=== PATIENT | female | born 1965 | race Caucasian/White ===

== ENCOUNTER 2017-09-19 19:52 | Inpatient (IN) | payer SELFPAY ==
[2017-09-19] MEDS ORDERED: PANTOPRAZOLE SODIUM IV DRIP 80 MG in IV NORMAL SALINE 100ML 100 ML IV (21:00)
[2017-09-19] MEDS ORDERED: 0.9 % SODIUM CHLORIDE 10 ML DISP.SYRIN. IV (21:00)
[2017-09-19] MEDS ORDERED: NICOTINE 14MG PATCH. TD (21:00)
[2017-09-19] MEDS: PANTOPRAZOLE SODIUM IV DRIP 80 MG in IV NORMAL SALINE 100ML 100 ML IV (21:49)
[2017-09-19] MEDS: MULTIVIT INFUSN,ADULT 4,VIT K 10 ML, THIAMINE 100 MG, FOLIC ACID 1 MG in IV RINGERS,LAC... IV (21:50)
[2017-09-19 22:59] LABS: HEMATOCRIT 28.5 % (36.0-47.0); HEMOGLOBIN 9.4 g/dL (12.0-15.5); MEAN CORPUSCULAR HEMOGLOBIN 30 pg (25-35); MEAN CORPUSCULAR HGB CONC 33 g/dL (31-37); MEAN CORPUSCULAR VOLUME 90 fL (79-100); PLATELET COUNT 43 x10^3/uL (140-400); RED BLOOD COUNT 3.15 x10^6/uL (3.50-5.40); RED CELL DISTRIBUTION WIDTH 16.2 % (11.5-14.5); WHITE BLOOD COUNT 5.5 x10^3/uL (4.0-11.0)
[2017-09-20] MEDS: ACETAMINOPHEN 325 MG TABLET. PO (03:28)
[2017-09-20 04:48] LABS: ADD MAN DIFF? NO
[2017-09-20 05:22] LABS: BASO # 0.1 x10^3/uL (0.0-0.2); BASO % 1 % (0-3); EOS # 0.3 x10^3/uL (0.0-0.7); EOS % 6 % (0-3); HEMOGLOBIN 9.6 g/dL (12.0-15.5); LYMPH # 2.8 x10^3/uL (1.0-4.8); LYMPH % 58 % (24-48); MEAN CORPUSCULAR HEMOGLOBIN 30 pg (25-35); MEAN CORPUSCULAR HGB CONC 33 g/dL (31-37); MEAN CORPUSCULAR VOLUME 91 fL (79-100); MONO # 0.2 x10^3/uL (0.0-1.1); MONO % 4 % (0-9); NEUT # 1.5 x10^3uL (1.8-7.7); NEUT % 31 % (31-73); PLATELET COUNT 42 x10^3/uL (140-400); RED BLOOD COUNT 3.18 x10^6/uL (3.50-5.40); RED CELL DISTRIBUTION WIDTH 16.6 % (11.5-14.5); WHITE BLOOD COUNT 4.9 x10^3/uL (4.0-11.0)
[2017-09-20 05:32] LABS: ALBUMIN 2.7 g/dL (3.4-5.0); ALBUMIN/GLOBULIN RATIO 0.6 (1.0-1.7); ALK PHOS 142 U/L (46-116); ALT (SGPT) 27 U/L (14-59); ANION GAP 13 (6-14); AST (SGOT) 39 U/L (15-37); BLOOD UREA NITROGEN 13 mg/dL (7-20); BUN/CREATININE RATIO 10 (6-20); CALCIUM 8.9 mg/dL (8.5-10.1); CARBON DIOXIDE 20 mmol/L (21-32); CHLORIDE 106 mmol/L (98-107); CREATININE 1.3 mg/dL (0.6-1.0); GFR 42.8; GLUCOSE 104 mg/dL (70-99); POTASSIUM 3.7 mmol/L (3.5-5.1); SODIUM 139 mmol/L (136-145); TOTAL BILIRUBIN 0.5 mg/dL (0.2-1.0); TOTAL PROTEIN 6.9 g/dL (6.4-8.2)
[2017-09-20 05:45] LABS: INR 1.1 (0.8-1.1); PROTHROMBIN TIME PATIENT 14.1 SEC (11.7-14.0)
[2017-09-20] MEDS: FOLIC ACID 1 MG TABLET. PO (09:09)
[2017-09-20] MEDS: CITALOPRAM 10 MG TABLET. PO (09:09)
[2017-09-20] MEDS: MULTIVITAMIN with MINERAL TABLET. PO (09:09)
[2017-09-20] MEDS: THIAMINE IM 200 MG/2 ML VIAL. IM (09:09)
[2017-09-20 09:37] LABS: PLT ESTIMATE DECREASED (ADEQUATE)
[2017-09-20] MEDS: PANTOPRAZOLE SODIUM IV DRIP 80 MG in IV NORMAL SALINE 100ML 100 ML IV ×2 (11:04→21:44)
[2017-09-20] MEDS ORDERED: chlordiazePOXIDE HCL 25 MG CAPSULE PO (11:45)
[2017-09-20] MEDS ORDERED: diphenhydrAMINE HCL 25 MG CAPSULE PO (11:45)
[2017-09-20] MEDS ORDERED: ALPRAZolam 0.25 MG TABLET PO (11:45)
[2017-09-20] MEDS ORDERED: CITALOPRAM 20 MG TABLET. PO (12:00)
[2017-09-20] MEDS: FLUTICASONE 50MCG/NASAL SPRAY 16GM BOTTLE. NS (12:00)
[2017-09-20] MEDS: PANTOPRAZOLE 40 MG TABLET.DR. PO (12:00)
[2017-09-20] MEDS ORDERED: NON FORMULARY ITEM (Albuterol Sulfate (Proventil Hfa Inhaler) 1 PUFF) IH (12:00)
[2017-09-20] MEDS: amLODIPine BESYLATE 5 MG TABLET PO (12:00)
[2017-09-20] MEDS ORDERED: ALBUTEROL SULFATE 2.5 MG/3 ML NEBU. NEB (12:15)
[2017-09-20] MEDS: ALBUTEROL SULFATE 2.5 MG/3 ML NEBU. NEB ×3 (12:30→23:55)
[2017-09-20] MEDS: BUDESONIDE 0.5 MG/2 ML NEBU. NEB ×2 (12:30→19:48)
[2017-09-20] MEDS: FLUCONAZOLE 100 MG TABLET. PO (12:45)
[2017-09-20] MEDS: LOSARTAN POTASSIUM 50 MG TABLET. PO (12:45)
[2017-09-20] MEDS: ASPIRIN CHEWABLE 81 MG TABLET. PO (12:45)
[2017-09-20] MEDS: CHLORHEXIDINE 0.12% 15 ML MOUTHWASH. SWSP ×2 (12:47→21:34)
[2017-09-20] MEDS: oxyCODONE IR 5 MG TABLET PO (12:47)
[2017-09-20] MEDS: CLINDAMYCIN HCL 150 MG CAPSULE. PO ×2 (13:30→19:28)
[2017-09-20] MEDS: LINEZOLID 600 MG TABLET PO ×2 (14:42→21:33)
[2017-09-20] MEDS: TRIAMCINOLONE ACETONIDE 0.1% TOPICAL OINTMENT 15GM TUBE. TP ×2 (14:42→21:34)
[2017-09-20] MEDS ORDERED: oxyCODONE IR 5 MG TABLET PO (16:00)
[2017-09-20] MEDS ORDERED: NON FORMULARY ITEM (Fluticasone/Salmeterol (Advair 250-50 Diskus) 1 PUFF) IH (21:00)
[2017-09-20] MEDS: LACTOBACILLUS RHAMNOSUS GG 1 CAPSULE. PO (21:33)
[2017-09-20] MEDS: CARVEDILOL 6.25 MG TABLET. PO (21:34)
[2017-09-20 22:09] LABS: MRSA BY PCR Negative (Negative)
[2017-09-21] MEDS: CLINDAMYCIN HCL 150 MG CAPSULE. PO ×3 (00:45→11:56)
[2017-09-21 05:15] LABS: ADD MAN DIFF? NO
[2017-09-21 05:30] LABS: BASO # 0.1 x10^3/uL (0.0-0.2); BASO % 2 % (0-3); EOS # 0.5 x10^3/uL (0.0-0.7); EOS % 9 % (0-3); HEMATOCRIT 29.2 % (36.0-47.0); HEMOGLOBIN 9.6 g/dL (12.0-15.5); LYMPH % 58 % (24-48); MEAN CORPUSCULAR HEMOGLOBIN 30 pg (25-35); MEAN CORPUSCULAR HGB CONC 33 g/dL (31-37); MEAN CORPUSCULAR VOLUME 91 fL (79-100); MONO # 0.3 x10^3/uL (0.0-1.1); MONO % 6 % (0-9); NEUT # 1.3 x10^3uL (1.8-7.7); NEUT % 26 % (31-73); PLATELET COUNT 43 x10^3/uL (140-400); RED CELL DISTRIBUTION WIDTH 16.6 % (11.5-14.5); WHITE BLOOD COUNT 5.1 x10^3/uL (4.0-11.0)
[2017-09-21] MEDS: ALBUTEROL SULFATE 2.5 MG/3 ML NEBU. NEB ×2 (06:00→10:45)
[2017-09-21] MEDS: BUDESONIDE 0.5 MG/2 ML NEBU. NEB (07:00)
[2017-09-21] MEDS: CARVEDILOL 6.25 MG TABLET. PO (08:00)
[2017-09-21] MEDS: PANTOPRAZOLE SODIUM IV DRIP 80 MG in IV NORMAL SALINE 100ML 100 ML IV (08:19)
[2017-09-21] MEDS: CITALOPRAM 20 MG TABLET. PO (08:23)
[2017-09-21] MEDS: LOSARTAN POTASSIUM 50 MG TABLET. PO (08:23)
[2017-09-21] MEDS: LACTOBACILLUS RHAMNOSUS GG 1 CAPSULE. PO (08:24)
[2017-09-21] MEDS: FLUCONAZOLE 100 MG TABLET. PO (08:24)
[2017-09-21] MEDS: FOLIC ACID 1 MG TABLET. PO (08:25)
[2017-09-21] MEDS: MULTIVITAMIN with MINERAL TABLET. PO (08:26)
[2017-09-21] MEDS: amLODIPine BESYLATE 5 MG TABLET PO (08:26)
[2017-09-21] MEDS: THIAMINE 100 MG TABLET. PO (08:27)
[2017-09-21] MEDS: LINEZOLID 600 MG TABLET PO (08:27)
[2017-09-21] MEDS: CHLORHEXIDINE 0.12% 15 ML MOUTHWASH. SWSP (08:27)
[2017-09-21] MEDS: TRIAMCINOLONE ACETONIDE 0.1% TOPICAL OINTMENT 15GM TUBE. TP (08:28)
[2017-09-21] MEDS ORDERED: NON FORMULARY ITEM (Umeclidinium Brm/Vilanterol Tr (Anoro Ellipta 62.5-25 Mcg Inh) 1 EACH) IH (09:00)
[2017-09-21] MEDS: FLUTICASONE 50MCG/NASAL SPRAY 16GM BOTTLE. NS (09:00)
== END 2017-09-21 13:08 | disposition home or self-care (01) | DRG 812 ==
LOC: 5 NORTH 09-20 16:53 → 1 WEST ICU 19:52
PROVIDERS: Internal Medicine
DX: D64.9 Anemia, unspecified (principal); D69.6 Thrombocytopenia, unspecified; K92.2 Gastrointestinal hemorrhage, unspecified; K92.1 Melena; R55 Syncope and collapse; F31.9 Bipolar disorder, unspecified; F17.210 Nicotine dependence, cigarettes, uncomplicated; F41.9 Anxiety disorder, unspecified; F10.10 Alcohol abuse, uncomplicated; Z88.0 Allergy status to penicillin; Z79.82 Long term (current) use of aspirin
CPT/HCPCS: 36415; 80053; 85025; 85027; 85610; 86850; 86900; 86901; 87641; C9113; J7120; J7613; J7626

== ENCOUNTER → 2017-11-26 | Outpatient (CLI) | payer OTHER | END | disposition home or self-care (01) | LOC: PF 07:43 | DX: J44.9 Chronic obstructive pulmonary disease, unspecified (principal) | CPT/HCPCS: 94010; 94729 ==